=== PATIENT | male | born 1960 | race Caucasian/White ===

== ENCOUNTER 2017-06-05 10:20 | Emergency (ER) | payer MEDICAID ==
[~2017-06-05] VITALS: Ht 170.2 cm; Wt 96.0 kg
[2017-06-05 10:31] VITALS: BP 134/79; PULSE 91; RESP 16; TEMP 98.1; O2SAT 100
[2017-06-05] MEDS ORDERED: METF500T PO (10:43)
[2017-06-05] MEDS ORDERED: DIPY25TA25 PO (10:43)
--- NOTE | 2017-06-05 10:51 | PD ---
HPI Chief Complaint: Injury Time Seen by Provider: 10:47 Travel History International Travel<30 days: No Contact w/Intl Traveler<30days: No Traveled to known affect area: No History of Present Illness HPI 57-year-old male here with left elbow pain. He reports he tripped and fell from a standing position falling onto a flexed elbow. He denies altered sensation or weakness of the extremity. He has pain with range of motion and palpation of the elbow. Describes pain as mild aching. Symptom severity is moderate. He denies head injury or loss of consciousness. Patient is anticoagulated. He denies headache, neck pain, chest pain, shortness of breath , abdominal pain, paresthesia or weakness in extremities. PFSH Past Medical History Medical History: Denies Significant Hx Cardiovascular Problems: Yes (PVD) Diabetes: Yes Patient Takes Glucophage: Yes Influenza Vaccination: No Social History Alcohol Use: No Tobacco Use: Yes (/ PPD) Substance Use: No Allergies-Medications (Allergen,Severity, Reaction): Coded Allergies: No Known Allergies (Unverified , 06/05/17) Reported Meds & Prescriptions Reported Meds & Active Scripts Active [place] (Hydrocodone-Acetaminophen) 5 Mg-325 Mg Tab 1 Tab PO Q6H PRN Reported Dipyridamole 25 Mg Tab 25 Mg PO BID Metformin (Metformin HCl) 500 Mg Tab 500 Mg PO BIDPC Review of Systems Except as stated in HPI: all other systems reviewed are Neg General / Constitutional: No: Fever Eyes: No: Visual changes HENT: No: Headaches Cardiovascular: No: Chest Pain or Discomfort Respiratory: No: Shortness of Breath Gastrointestinal: No: Abdominal Pain Genitourinary: No: Dysuria Physical Exam Narrative GENERAL: Alert and well-appearing 57-year-old male SKIN: Warm and dry. HEAD: Normocephalic. Atraumatic EYES: No scleral icterus. No injection or drainage. Pupils equal, round, reactive. EOMs intact. NECK: Supple, trachea midline. No cervical midline tenderness CARDIOVASCULAR: Regular rate and rhythm without murmurs, gallops, or rubs. RESPIRATORY: Breath sounds equal bilaterally. No accessory muscle use. GASTROINTESTINAL: Abdomen soft, non-tender, nondistended. MUSCULOSKELETAL: No cyanosis. Left upper extremity: +ttp and mild swelling to the olecranon. Patient has pain with full extension of the elbow. Palpable brachial and radial pulses. Normal sensation distally. Normal coloration. Can freely move the wrist and fingers. Brisk cap refill. BACK: Nontender without obvious deformity. No CVA tenderness. Data Data Last Documented VS Vital Signs Date Time Temp Pulse Resp B/P (MAP) Pulse Ox O2 Delivery O2 Flow Rate FiO2 06/05/17 10:31 98.1 91 16 134/79 (97) 100 Orders Orders Elbow, Complete (4 Vws) (06/05/17 ) Ct Brain W/O Iv Contrast(Rout) (06/05/17 ) Splint Or Brace Apply/Monitor (06/05/17 11:55) Ed Discharge Order (06/05/17 12:28) MDM Medical Decision Making Medical Screen Exam Complete: Yes Emergency Medical Condition: Yes Differential Diagnosis Elbow fracture, contusion, ICH Narrative Course 57-year-old male here with left elbow pain after he had a trip and fall landing on the left elbow today. He is anticoagulated. He has a normal neurologic exam. No evidence of trauma to the head. The extremity is neurovascularly intact. CT the brain shows no evidence of ICH. X-ray left elbow show olecranon fracture. Patient was put in a posterior long-arm splint and sling. He is to follow-up with orthopedic doctor this week. He was advised may require surgical repair. He verbalizes understanding and agrees to plan Diagnosis Primary Impression: Olecranon fracture Qualified Codes: S52.022A - Displaced fracture of olecranon process without intraarticular extension of left ulna, initial encounter for closed fracture Referrals: Stephen Ty Jr., MD Orthopedist Primary Care Physician Additional Instructions: Follow-up with orthopedic doctor next week. Splint and sling must stay in place until follow-up. Pain medication as directed. Return if you have new or worsening symptoms Scripts Hydrocodone-Acetaminophen ([place]) 5 Mg-325 Mg Tab 1 TAB PO Q6H Y for PAIN, #12 TAB 0 Refills Prov: Nani Harris 06/05/17 Disposition: 01 DISCHARGE HOME Condition: Stable Nani Harris Jun 05, 2017 10:51
--- NOTE | 2017-06-05 11:18 | RADRPT ---
EXAM DATE/TIME: 06/05/2017 11:02 [facility] COMPARISON: No previous studies available for comparison. INDICATIONS : Fell on stairs today, Left elbow pain MEDICAL HISTORY : Diabetes mellitus type II. SURGICAL HISTORY : None. ENCOUNTER: Initial ACUITY: 1 day PAIN SCORE: 7/10 LOCATION: Left elbow FINDINGS: A standard 4 view examination of the left elbow was obtained and demonstrates a mildly comminuted fra cture deformity of the olecranon which extends into the central portion of the joint. The fracture fr agments are only minimally distracted of approximately 4-5 mm. The radius and distal humerus are inta ct. There is overlying soft tissue swelling and mild osteopenia. CONCLUSION: Mildly comminuted fracture of the olecranon. Magen Lopes MD on June 05, 2017 at 11:15 Board Certified Radiologist. This report was verified electronically.
--- NOTE | 2017-06-05 11:40 | RADRPT ---
EXAM DATE/TIME: 06/05/2017 11:15 [facility] COMPARISON: No previous studies available for comparison. INDICATIONS : Status post fall.. RADIATION DOSE: 56.09 CTDIvol (mGy) MEDICAL HISTORY : None SURGICAL HISTORY : None. ENCOUNTER: Initial ACUITY: 1 day PAIN SCALE: 0/10 LOCATION: cranial TECHNIQUE: Multiple contiguous axial images were obtained of the head. Using automated exposure control and adj ustment of the mA and/or kV according to patient size, radiation dose was kept as low as reasonably a chievable to obtain optimal diagnostic quality images. DICOM format image data is available electro nically for review and comparison. FINDINGS: CEREBRUM: There is mild atrophic change with mild sulcal prominence. There is dilatation of the lateral ventric ular system and third ventricle out of proportion to the atrophic change. The fourth ventricle is wit hin normal limits. No evidence of midline shift, mass lesion, hemorrhage or acute infarction. No ext ra-axial fluid collections are seen. POSTERIOR FOSSA: The cerebellum and brainstem are intact. The 4th ventricle is midline. The cerebellopontine angle i s unremarkable. EXTRACRANIAL: The visualized portion of the orbits is intact. SKULL: The calvaria is intact. No evidence of skull fracture. CONCLUSION: 1. No hemorrhage or mass effect. 2. The lateral ventricles and third ventricle are dilated out of proportion to the atrophic change ra ising the question of possible normal pressure hydrocephalus. Magen Lopes MD on June 05, 2017 at 11:34 Board Certified Radiologist. This report was verified electronically.
[2017-06-05] MEDS ORDERED: NORC5TAB PO (12:27)
== END 2017-06-05 12:38 | disposition home or self-care (01) ==
LOC: PHEFT 10:20
DX: S52.022A Displaced fracture of olecranon process without intraarticular extension of left ulna, initial encounter for closed fracture (principal); W01.0XXA Fall on same level from slipping, tripping and stumbling without subsequent striking against object, initial encounter; I73.9 Peripheral vascular disease, unspecified; E11.9 Type 2 diabetes mellitus without complications; F17.200 Nicotine dependence, unspecified, uncomplicated
CPT/HCPCS: 29105; 70450; 73080